=== PATIENT | female | born 1950 ===

== ENCOUNTER 2019-05-22 14:34 | Outpatient (CLI) | payer OTHER ==
--- NOTE | 2019-05-23 12:36 | XRAY Report ---
Reason: LEFT HIP PAIN Procedure Date: 05/22/2019 Accession Number: [id number] / [id number] Procedure: XRS - Hip w/Pelvis 2-3V LT CPT Code: Final Report FULL RESULT: EXAM: LEFT HIP RADIOGRAPHY EXAM DATE: 05/22/2019 03:44 PM. CLINICAL HISTORY: Left hip pain. COMPARISON: None. TECHNIQUE: 2 views. FINDINGS: Bones: No fractures or definite acute bone lesions. Lower lumbar spine degenerative disease demonstrated. Nodular sclerotic foci project over the superolateral iliac bones bilaterally. These could represent benign bone islands or incidental soft tissue calcifications, such as injection granulomata, but they are nonspecific. Joints: Severe left hip joint space narrowing ([id number]) with associated subchondral sclerosis and cystic degenerative-type change at both margins of the joint space and also articular surface deformity/remodeling with some flattening of the superior femoral head. There is a severe marginal spurring. No dislocation. There is lesser but severe right hip joint space narrowing with some subchondral sclerosis and subchondral lucent/cystic change and marginal spurring. No jameson bony deformity. Soft Tissues: Normal. No soft tissue swelling. IMPRESSION: 1. Severe hip osteoarthritis, left substantially greater than right. 2. Dense nodules projecting over both iliac bones may represent incidental benign bone islands but they are not specific, as discussed above. [facility]
== END 2019-05-22 14:35 | disposition home or self-care (01) ==
LOC: DI.S 14:34
PROVIDERS: ATTEND Naprapath
DX: M16.12 Unilateral primary osteoarthritis, left hip (principal)